=== PATIENT | male | born 1995 | race Caucasian/White ===

== ENCOUNTER 2017-07-31 11:49 | Emergency (ER) | payer MEDICAID, OTHER | END 2017-07-31 15:57 | disposition home or self-care (01) | LOC: FTE 11:49 | DX: R06.02 Shortness of breath (principal) | CPT/HCPCS: 71045; 82962; 93005; 99284-25 ==

== ENCOUNTER 2018-09-06 12:22 | Emergency (ER) | payer MEDICAID, OTHER | END 2018-09-06 17:10 | disposition home or self-care (01) | LOC: FTE 17:10 | DX: F41.9 Anxiety disorder, unspecified (principal); F17.210 Nicotine dependence, cigarettes, uncomplicated | CPT/HCPCS: 99283; Z7502 ==